=== PATIENT | female | born 1960 | race Caucasian/White ===

== ENCOUNTER → 2016-07-24 | Day surgery (SDC) | payer BC ==
[2016-07-17 13:09] VITALS: BMI 26.0
[~2016-07-24] VITALS: Ht 162.6 cm; Wt 71.8 kg
[~2016-07-24] MED LIST: ALBU18002 INH; ATEN-173 PO; CHOL2000 PO; FLAX1CAP11 PO; LEVO100T PO; MULT-506 PO; PANT40TA PO
[2016-07-24 15:09] VITALS: Ht 162.6 cm; Wt 71.8 kg
--- NOTE | 2016-07-24 15:32 | Endo History and Physical ---
History & Physical Date of Service: Jul 24, 2016. Chief Complaint: EPIGASTRIC PAIN Referring Physician: DR CH History of Present Illness 55 yo CF who presents for EGD secondary to epigastric abdominal pain. Past Surgical History Hx Cardiac Surgery: No Hx Internal Defibrillator: No Hx Pacemaker: No Hx Abdominal Surgery: Yes (SAMINA, ABDOMINAL ADHESION REMOVAL) Hx of Implantable Prosthesis: No Hx Post-Op Nausea and Vomiting: Yes Hx Cancer Surgery: No Hx Thoracic Surgery: No Hx Orthopedic: Yes (RT ELBOW TENDON REPAIR, LT KNEE SURGERY) Hx Urinary Tract Surgery: No Family History None Social History Smoking Status: Former Smoker Hx Substance Use: No Hx Alcohol Use: Yes (OCCASIONAL) Allergies Coded Allergies: Epinephrine (Verified Allergy, Unknown, "HAD A BAD EXPERIENCE AT DENTIST" CRISTINA/JONO, MEJÍA, 07/17/16) Current Medications Reported Home Medications Medications Dose Route/Sig Max Daily Dose Days Date Category Proair Respiclick (Albuterol Sulfate) 108 Mcg/Act Aer 2 Puffs INH Q4H PRN 07/17/16 Reported Vitamin D3 (Cholecalciferol) 2,000 Unit Cap 1 Cap PO QAM 07/17/16 Reported Flax Seed Oil (Flaxseed (Linseed)) 1 Cap Cap 1 Cap PO QAM 07/17/16 Reported Multivitamin (Multivitamins) Tab 1 Tab PO Q2D 07/17/16 Reported Protonix (Pantoprazole Sodium) 40 Mg Tab 40 Mg PO QAM 07/17/16 Reported Tenormin (Atenolol) 25 Mg Tab 0.5 Tab PO BID 07/17/16 Reported Synthroid (Levothyroxine Sodium) 100 Mcg Tab 100 Mcg PO QAM 01/27/12 Reported Vital Signs Weight (Kilograms): 71.82 Height (Feet): 5 Height (Inches): 4 Date Time Temp Pulse Resp B/P Pulse Ox O2 Delivery O2 Flow Rate FiO2 07/24/16 15:16 36.7 83 20 167/67 99 Room Air Physical Exam General Appearance: WD/WN, no apparent distress Respiratory/Chest: Auscultation: breath sounds normal Cardiovascular: Heart Auscultation: RRR Abdomen: Bowel Sounds: normal Inspection & Palpation: soft, non-distended, no tenderness, guarding & rebound Assessment and Plan Assessment: 55 yo CF who presents for EGD secondary to epigastric abdominal pain. Plan: Proceed with EGD.
--- NOTE | 2016-07-24 15:38 | Discharge Instructions ---
Endoscopy Patient Instructions Date / Procedure(s) Performed Jul 24, 2016. EGD Allergy Information Coded Allergies: Epinephrine (Verified Allergy, Unknown, "HAD A BAD EXPERIENCE AT DENTIST" CRISTINA/ALFONZO DE LA CRUZ, 07/17/16) Discharge Date / Findings Jul 24, 2016. Gastritis s/p biopsies Gastric polyps Medication Instructions OK to resume all medications today as prescribed Start Carafate 1g by mouth four times daily before meals and at bedtime for 10 days. Reported Home Medications Medications Dose Route/Sig Max Daily Dose Days Date Category Proair Respiclick (Albuterol Sulfate) 108 Mcg/Act Aer 2 Puffs INH Q4H PRN 07/17/16 Reported Vitamin D3 (Cholecalciferol) 2,000 Unit Cap 1 Cap PO QAM 07/17/16 Reported Flax Seed Oil (Flaxseed (Linseed)) 1 Cap Cap 1 Cap PO QAM 07/17/16 Reported Multivitamin (Multivitamins) Tab 1 Tab PO Q2D 07/17/16 Reported Protonix (Pantoprazole Sodium) 40 Mg Tab 40 Mg PO QAM 07/17/16 Reported Tenormin (Atenolol) 25 Mg Tab 0.5 Tab PO BID 07/17/16 Reported Synthroid (Levothyroxine Sodium) 100 Mcg Tab 100 Mcg PO QAM 01/27/12 Reported Provider Instructions Activity Restrictions - No exercising or heavy lifting for 24 hours. - Do not drink alcohol the day of the procedure. - Do not drive a car or operate machinery until the day after the procedure. - Do not make any important decisions or sign important papers in 24 hours after the procedure. Following Day: - Return to full activity which may include returning to work/school. Diet Start your diet with liquids and light foods (jello, soup, juice, toast). Then eat your usual diet if not nauseated. Treatment For Common After Affects For mild abdominal pain, bloating, or excessive gas: - Rest - Eat lightly - Lie on right side Follow-Up Information Follow-up with DR CH as scheduled Anesthesia Information What You Should Know You have had a procedure that required some medicine to reduce anxiety and discomfort. This treatment is called moderate sedation. After receiving the treatment, you may be sleepy, but you will be able to breathe on your own. The effects of the treatment may last for several hours. Follow these instructions along with Activity/Diet recommendations noted above: * Do NOT do anything where dizziness or clumsiness would be dangerous. * Rest quietly at home today, then you can be up and about tomorrow. * Have a responsible person stay with you the rest of today. * You may have had an I.V. today. If so, you may take the dressing off later today. Recommendations Call your doctor if: * Trouble breathing * Continuous vomiting for more than 24 hours * Temperature above 101 degrees * Severe abdominal pain or bloating * Pain not relieved by pain medicine ordered * There is increased drainage or redness from any incision * A large amount of rectal bleeding greater than 2-3 tablespoons. (If you had a polyp/s removed or have hemorrhoids, a small amount of blood - from the rectum is to be expected.) * You have any unanswered questions or concerns. IN THE EVENT OF A SERIOUS EMERGENCY, GO TO THE NEAREST EMERGENCY ROOM Your discharge instructions were prepared by provider Paul Agrawal. Patient Instructions Signature Page Sherly Wick Patient (or Guardian) Signature/Date: I have read and understand the instructions given to me by my caregivers. Caregiver/RN/Doctor Signature/Date: The above-named patient and/or guardian has received patient instructions on this date. + Original Patient Signature Page (only) stays with chart. Please make copy for patient.
--- NOTE | 2016-07-24 15:44 | GI REPORT ---
Procedure Date: 07/24/2016 3:33 PM Procedure: Upper GI endoscopy Indications: Epigastric abdominal pain Medicines: Monitored Anesthesia Care Complications: No immediate complications. Estimated Blood Loss: Estimated blood loss: none. Procedure: Pre-Anesthesia Assessment: - Prior to the procedure, a History and Physical was performed, and patient medications and allergies were reviewed. The patient's tolerance of previous anesthesia was also reviewed. The risks and benefits of the procedure and the sedation options and risks were discussed with the patient. All questions were answered, and informed consent was obtained. Prior Anticoagulants: The patient has taken no previous anticoagulant or antiplatelet agents. ASA Grade Assessment: II - A patient with mild systemic disease. After reviewing the risks and benefits, the patient was deemed in satisfactory condition to undergo the procedure. After obtaining informed consent, the endoscope was passed under direct vision. Throughout the procedure, the patient's blood pressure, pulse, and oxygen saturations were monitored continuously. The scope was introduced through the mouth, and advanced to the second part of duodenum. The upper GI endoscopy was accomplished without difficulty. The patient tolerated the procedure well. Findings: The examined esophagus was normal. Localized mild inflammation characterized by erythema was found in the gastric antrum. Biopsies were taken with a cold forceps for histology. Multiple 2 to 5 mm sessile polyps with no stigmata of recent bleeding were found in the gastric body. The examined duodenum was normal. Impression: - Normal esophagus. - Gastritis. Biopsied. - Multiple gastric polyps. - Normal examined duodenum. Recommendation: - Resume previous diet. - Continue present medications. - Await pathology results. - Return to GI office as previously scheduled. Paul Agrawal, DO 07/24/2016 3:43:51 PM This report has been signed electronically. Note Initiated On: 07/24/2016 3:33 PM
[2016-07-24 16:12] VITALS: BP 140/69; PULSE 77; O2SAT 98
--- NOTE | 2016-07-24 16:46 | Anesthesiology Progress Note ---
Anesthesia Post Op Note Date & Time Jul 24, 2016 at 16:46 Vital Signs Pain Intensity: 0 Vital Signs Past 12 Hours Date Time Temp Pulse Resp B/P Pulse Ox O2 Delivery O2 Flow Rate FiO2 07/24/16 16:12 77 16 140/69 98 Room Air 07/24/16 15:57 74 16 125/66 98 Room Air 07/24/16 15:42 85 16 100/53 98 Room Air 07/24/16 15:16 36.7 83 20 167/67 99 Room Air Notes Mental Status: alert / awake / arousable, participated in evaluation Pt Amnestic to Procedure: Yes Nausea / Vomiting: adequately controlled Pain: adequately controlled Airway Patency, RR, SpO2: stable & adequate BP & HR: stable & adequate Hydration State: stable & adequate Anesthetic Complications: no major complications apparent
== END | disposition home or self-care (01) ==
LOC: C.GI 14:51
PROVIDERS: ATTEND Internal Medicine
DX: K31.7 Polyp of stomach and duodenum (principal); K29.70 Gastritis, unspecified, without bleeding; K31.89 Other diseases of stomach and duodenum; Z98.890 Other specified postprocedural states; Z87.891 Personal history of nicotine dependence

== ENCOUNTER → 2017-07-25 | Outpatient (CLI) | payer OTHER ==
[2017-07-28 23:40] LABS: PARVOVIRUS IgM INDEX 0.3 (<0.9)
== END | disposition home or self-care (01) ==
LOC: C.LAB1850 15:35
PROVIDERS: ATTEND Internal Medicine
DX: M02.30 Reiter's disease, unspecified site (principal)